=== PATIENT | female | born 2000 | race Caucasian/White ===

== ENCOUNTER 2023-10-13 16:22 | Inpatient (IN) | payer OTHER ==
[~2023-10-13] VITALS: Ht 162.6 cm; Wt 85.1 kg
[2023-10-13] VITALS (9 sets, daily range): BP systolic 119–150; BP diastolic 58–78; O2SAT 100
[2023-10-13] MEDS ORDERED: PRENTAB9 PO (16:44)
[2023-10-13] MEDS ORDERED: SYNT112T2 PO (17:05)
[2023-10-13] MEDS ORDERED: MONT10TA97 PO (17:05)
[2023-10-13] MEDS ORDERED: VENTAER INH (17:05)
[2023-10-13] MEDS ORDERED: HOME MED LIST COMPLETE! XX SCH (18:30)
[2023-10-13] MEDS ORDERED: TRANEXAMIC ACID INJection 1,000 MG in NS 100 ML IV PRN (18:35)
[2023-10-13] MEDS ORDERED: LIDOCAINE 1% MDV 20ML VIAL INFIL PRN (18:35)
[2023-10-13] MEDS ORDERED: METHYLERGONOVINE MALEATE 0.2MG/ML 1ML VIAL IM PRN (18:35)
[2023-10-13] MEDS ORDERED: CARBOPROST TROMETHAMINE 250 MCG/ML AMP IM PRN (18:35)
[2023-10-13] MEDS ORDERED: OXYTOCIN INJ 10UNITS/ML 1ML VIAL IM PRN (18:35)
[2023-10-13] MEDS ORDERED: OXYTOCIN DRIP 30 UNITS in IV 1 EA IV PRN ×6 (18:35)
[2023-10-13 19:56] LABS: HEMATOCRIT 41.6 % (36.0-47.0); HEMOGLOBIN 14.6 g/dl (12.0-15.5); MEAN CORPUSCULAR HEMOGLOBIN 31.6 pg (27.0-33.0); MEAN CORPUSCULAR HGB CONC 35.1 g/dl (32.0-36.5); PLATELET COUNT, AUTOMATED 189 10^3/uL (150-450); RED BLOOD COUNT 4.62 10^6/uL (4.00-5.40); WHITE BLOOD COUNT 11.1 10^3/uL (4.0-10.0)
[2023-10-13] MEDS ORDERED: DOCUSATE SODIUM 100MG CAPSULE PO PRN (20:10)
[2023-10-13] MEDS ORDERED: RHOGAM 300MCG (1500IU) INJ IM SCH (20:10)
[2023-10-13] MEDS ORDERED: DIBUCAINE 1% OINTMENT 30GM TOP PRN (20:10)
[2023-10-13] MEDS ORDERED: OXYTOCIN DRIP 30 UNITS in IV 1 EA IV SCH (20:10)
[2023-10-13] MEDS ORDERED: METHYLERGONOVINE MALEATE 0.2 MG TAB PO PRN (20:10)
[2023-10-13] MEDS ORDERED: ACETAMINOPHEN TAB 650MG DOSE (2X325MG) PO PRN (20:10)
[2023-10-13] MEDS ORDERED: IBUPROFEN 600MG TAB PO PRN (20:10)
[2023-10-13] MEDS ORDERED: ACETAMINOPHEN 500 MG TAB PO PRN (20:10)
[2023-10-13 20:52] LABS: HIV 1&2 SCREEN NEGATIVE (NEGATIVE)
[2023-10-13] MEDS: IBUPROFEN 800 MG TAB PO PRN (22:27)
[2023-10-14 06:00] VITALS: BP 120/56; O2SAT 100
[2023-10-14 07:41] LABS: HEMATOCRIT 37.4 % (36.0-47.0); HEMOGLOBIN 12.7 g/dl (12.0-15.5); MEAN CORPUSCULAR HEMOGLOBIN 30.8 pg (27.0-33.0); MEAN CORPUSCULAR VOLUME 90.6 fl (80.0-96.0); PLATELET COUNT, AUTOMATED 165 10^3/uL (150-450); RED BLOOD COUNT 4.13 10^6/uL (4.00-5.40); WHITE BLOOD COUNT 11.1 10^3/uL (4.0-10.0)
[2023-10-14] MEDS: IBUPROFEN 800 MG TAB PO PRN ×2 (08:44→20:47)
[2023-10-14 08:45] VITALS: O2SAT 16
[2023-10-14] MEDS: PRENATAL VITAMINS CHEWABLE TABLET PO SCH (09:00)
[2023-10-14 18:00] VITALS: BP 127/67; O2SAT 97
[2023-10-15 06:00] VITALS: BP 113/61; O2SAT 97
[2023-10-15] MEDS ORDERED: SYNT112T2 PO (08:09)
[2023-10-15] MEDS ORDERED: IBUP80TA PO (08:09)
[2023-10-15] MEDS: PRENATAL VITAMINS CHEWABLE TABLET PO SCH (09:00)
== END 2023-10-15 11:50 | disposition home or self-care (01) | DRG 560 ==
LOC: M LDO 16:22 → M LDI 18:33 → M OBS 22:08
PROVIDERS: ADMIT Obstetrics & Gynecology Obstetrics; ATTEND Obstetrics & Gynecology Obstetrics
PROC: 10E0XZZ Delivery of Products of Conception, External Approach (ICD-10-PCS; principal; 2023-10-13)
DX: O48.0 Post-term pregnancy (principal); Z37.0 Single live birth; Z3A.40 40 weeks gestation of pregnancy; E03.9 Hypothyroidism, unspecified; O99.284 Endocrine, nutritional and metabolic diseases complicating childbirth; O77.0 Labor and delivery complicated by meconium in amniotic fluid